=== PATIENT | female | born 1995 | race Native Hawaiian/Other Pacific Islander ===

== ENCOUNTER → 2020-01-07 | Emergency (ER) | payer OTHER ==
[~2020-01-07] VITALS: Ht 160 cm; Wt 62.6 kg
[2020-01-07 12:51] VITALS: BP 108/63
== END ==
LOC: ER 12:42
DX: N93.8 Other specified abnormal uterine and vaginal bleeding (principal); M54.5 Low back pain; R31.9 Hematuria, unspecified